=== PATIENT | female | born 1970 | race Caucasian/White ===

== ENCOUNTER → 2016-11-09 | Outpatient (CLI) | payer BC ==
[~2016-11-09] MED LIST: ASPCH81X PO; CHOL100010 PO; IRON PO; LEVO112T2 PO; LEVO112T4 PO; NITR100C6 PO; TRAM-10 PO; ZOLP10TA6 PO; ZOLP5TAB PO
--- NOTE | 2016-11-10 08:17 | DIAGNOSTIC IMAGING REPORT ---
MRI OF THE RIGHT KNEE WITHOUT CONTRAST CLINICAL HISTORY: Right knee pain and swelling. COMPARISON STUDY: None. TECHNIQUE: Utilizing a 1.5 Lashay magnet and dedicated coil, multiplanar, multiecho imaging of the right knee was performed without intravenous or intraarticular contrast. FINDINGS: Alignment of the right knee is anatomic. Extensor mechanism is intact. The anterior and posterior cruciate ligaments are intact. The medial collateral ligament and lateral collateral ligament complex are also intact. There is mild subchondral edema within the anterior aspect of the medial tibial plateau. There is a markedly abnormal appearance of the lateral meniscus. The posterior horn and body of the lateral meniscus are diminutive. There is also a tear within the anterior horn of the lateral meniscus. There is a suspected meniscal fragment adjacent to the anterior horn of the lateral meniscus. A portion of the lateral meniscus may also be within the inferior meniscal gutter. There is signal within the medial meniscus without definite extension to articular surface. There are several small ganglion cysts along the posterior aspect of the posterior cruciate ligament. There is moderate chondrosis of the medial femoral condyle. There is mild chondrosis within the lateral and patellofemoral compartments. IMPRESSION: 1. Complex tear of the lateral meniscus, possibly reflecting a bucket-handle tear. Body and posterior horn are diminutive with suspected meniscal fragment adjacent to the anterior horn of the lateral meniscus. In addition, a portion of the lateral meniscus may be within the inferior meniscal gutter. 2. Moderate chondrosis within the medial femoral condyle with mild chondrosis within the lateral and patellofemoral compartments. Electronically signed by: Baldo Nayak M.D. 11/10/2016 8:16 AM Dictated Date/Time: 11/09/2016 3:58 PM
== END | disposition home or self-care (01) ==
LOC: C.MRIBC 11:14
PROVIDERS: ATTEND Orthopaedic Surgery
DX: S83.271A Complex tear of lateral meniscus, current injury, right knee, initial encounter (principal); M22.2X1 Patellofemoral disorders, right knee; X58.XXXA Exposure to other specified factors, initial encounter

== ENCOUNTER → 2016-12-21 | Day surgery (SDC) | payer BC ==
[2016-12-10 08:26] VITALS: Ht 165.1 cm; Wt 95.5 kg
[~2016-12-21] VITALS: Ht 165.1 cm; Wt 95.5 kg
[~2016-12-21] MED LIST changes: +ATROPINE SULFATE 0.1 MG/ML 5ML SYR IV PRN; +BUPIVACAINE 0.5 % 5 MG/1 ML MPF 30ML VIAL ONE; +CEFAZOLIN 2000 MG/60 ML D5W IV SCH; +DEXAMETHASONE SOD INJ 4 MG/ML VIAL ONE; +EpHEDrine SULFATE INJ 50 MG/ML AMP IV PRN; +EpINEphrine INJ 1MG/ML AMP 1 MG/ML AMP ONE; +FENTANYL CITRATE INJ 50 MCG/1 ML 2 ML VIAL ONE; +HYDROmorphone INJ 1 MG/ML SYR IV PRN; +KETOROLAC TROMETHAMINE 30 MG/ML VIAL ONE; +LACTATED RINGER'S 1000ML 1,000 ML IV SCH; -LEVO112T2 PO; +LIDOCAINE HCL 2% 2 ML VIAL (20MG/ML) ONE; +MIDAZOLAM HCL 1 MG/ML 2ML VIAL ONE; -NITR100C6 PO; +ONDANSETRON INJ 2 MG/ML 2 ML VIAL IV PRN; +ONDANSETRON INJ 2 MG/ML 2 ML VIAL ONE; +OXYCODONE/ACETAMINOPHEN 5-325 TAB PO PRN; +PROMETHAZINE HCL INJ 12.5 MG in SODIUM CHLORIDE 0.9% 50ML 50 ML IV PRN; +PROPOFOL IV EMULSION 10 MG/ML 20 ML VIAL IV ONE; +ROPIVACAINE 0.5% 5 MG/ML 30 ML VIAL ONE; +SODIUM CHLORIDE 0.9% 1000ML 1,000 ML IV SCH; -ZOLP10TA6 PO
--- NOTE | 2016-12-21 07:21 | History & Physical Bridge - SC ---
H&P Re-Evaluation Bridge Note: I have examined the patient, reviewed the History & Physical and in the interval since the performance of the History & Physical I have noted the following changes of clinical significance: No changes noted
--- NOTE | 2016-12-21 07:59 | [facility] Post Operative Brief Note ---
Immediate Operative Summary Operative Date Dec 21, 2016. Pre-Operative Diagnosis Right knee lateral meniscus tear Post-Operative Diagnosis Same as preop Procedure(s) Performed Right Knee Arthroscopy, Partial Lateral Meniscectomy, Removal of plica band Surgeon Dr. Parra J2Ee Developer Surgeon(s) Mirza Ye PA-C Estimated Blood Loss 0 mL Findings ABOVE Specimens None Anesthesia LMA Complication(s) None Disposition Recovery Room / PACU
--- NOTE | 2016-12-21 08:10 | Discharge Instructions-SurgCtr ---
Discharge Instructions Date of Service Dec 21, 2016. Visit Reason for Visit: Right Knee Pain, Synovitis Discharge Discharge Diagnosis / Problem: SAME ABOVE Discharge Goals Goal(s): Decrease discomfort, Improve function Activity Recommendations Activity Limitations: as noted below Lifting Limitations: gradually increase as tolerated Exercise/Sports Limitations: until after follow-up appointment Shower/Bathe: may shower/bathe in 3 days Anesthesia . Post Anesthesia Instructions: If you have had General Anesthesia or IV Sedation: * Do not drive today. * Resume driving when surgeon permits. * Do not make important decisions or sign legal documents today. * Call surgeon for: 1. Temperature elevations greater than 101 degrees F. 2. Uncontrollable pain. 3. Excessive bleeding. 4. Persistent nausea and vomiting. 5. Medication intolerance (nausea, vomiting or rash). * For nausea and vomiting use only clear liquids such as: tea, soda, bouillon until nausea subsides, then gradually increase diet as tolerated. * If you have any concerns or questions, call your surgeon's office. If physician is unavailable and it is an emergency, call 911 or go to the nearest emergency room. . Instructions / Follow-Up Instructions / Follow-Up MEDICATIONS: * Resume previous medications unless instructed otherwise by your surgeon. * Always take pain medication on a full stomach or with food to avoid upset stomach. * Do not drink alcohol or drive while taking narcotics. * Ibuprofen or Tylenol may be taken if narcotic not needed. SPECIAL CARE INSTRUCTIONS: __ None _X_ Keep extremity elevated and iced x 48 hours; apply ice 20-30 minutes 8-10 times/day. May remove at night. __ Crutches __ May discard when able __ Brace/Post-op shoe __ 24 hrs/day __ Remove at night _X_ Dressing __ Maintain until seen in office, may shower with plastic over site X__ Remove dressings in 24-48 hours and then may shower _X_ Cover incisions with band-aids after showering __ Do not remove steri-strips Call physician if chills or temperature rises above 102 degrees or pain unrelieved by prescribed pain medications. Office [phone] Diet Recommendations Home Diet: resume previous diet Procedures Procedures Performed: Right Knee Arthroscopy, Partial Lateral Meniscectomy, Removal of plica band Pending Studies Studies pending at discharge: no Medical Emergencies . Who to Call and When: Medical Emergencies: If at any time you feel your situation is an emergency, please call 911 immediately. . Non-Emergent Contact Non-Emergency issues call your: Primary Care Provider . . "Provider Documentation" section prepared by Mirza Ye. .
[2016-12-21] MEDS: FENTANYL CITRATE INJ 50 MCG/1 ML 2 ML VIAL IV PRN ×2 (08:29→08:39)
[2016-12-21 09:07] VITALS: TEMP 36.4
--- NOTE | 2016-12-21 09:13 | Anesthesia Progress Nt - [facility] ---
Anesthesia Post Op Note Date & Time Dec 21, 2016 at 09:13 Vital Signs Pain Intensity: 3 Vital Signs Past 12 Hours Date Time Temp Pulse Resp B/P (MAP) Pulse Ox O2 Delivery O2 Flow Rate FiO2 12/21/16 08:57 85 12 99 12/21/16 08:57 87 12 12/21/16 08:57 36.2 70 12 117/83 99 Room Air 12/21/16 08:56 117/83 12/21/16 08:52 78 13 12/21/16 08:52 78 13 99 12/21/16 08:51 133/78 12/21/16 08:47 69 11 12/21/16 08:47 69 11 100 12/21/16 08:46 120/82 12/21/16 08:42 86 11 100 12/21/16 08:42 88 11 12/21/16 08:41 131/80 12/21/16 08:37 86 12 12/21/16 08:37 84 12 100 12/21/16 08:36 126/81 12/21/16 08:32 95 20 12/21/16 08:32 94 20 100 12/21/16 08:31 128/81 12/21/16 08:27 94 16 100 12/21/16 08:27 95 16 12/21/16 08:26 125/84 12/21/16 08:22 91 16 99 12/21/16 08:22 91 16 12/21/16 08:21 121/77 12/21/16 08:17 103 24 12/21/16 08:17 103 24 100 12/21/16 08:16 119/79 12/21/16 08:12 90 16 12/21/16 08:12 91 16 100 12/21/16 08:11 120/78 12/21/16 08:08 125/95 12/21/16 08:07 97 98 12/21/16 08:07 97 12/21/16 08:07 36.3 95 16 125/95 98 Mask 6 12/21/16 06:40 37.0 83 22 135/110 (118) 95 Room Air Notes Mental Status: alert / awake / arousable, participated in evaluation Pt Amnestic to Procedure: Yes Nausea / Vomiting: adequately controlled Pain: adequately controlled Airway Patency, RR, SpO2: stable & adequate BP & HR: stable & adequate Hydration State: stable & adequate Anesthetic Complications: no major complications apparent
--- NOTE | 2016-12-21 09:28 | OPERATIVE REPORT ---
DATE OF OPERATION: 12/21/2016 PREOPERATIVE DIAGNOSIS: Chronic Lateral meniscus tear, right knee. POSTOPERATIVE DIAGNOSIS: Bucket handle tear, lateral meniscus, right knee and plica bands, patellofemoral joint. PROCEDURES: 1. Right knee arthroscopy and partial lateral meniscectomy. 2. Removal of plica band of patellofemoral joint. SURGEON: Dr. Donte Parra. ARBOR PRESS OPERATOR: Mirza Ye PA-C. ANESTHESIOLOGIST: Eddie Thomas MD ANESTHESIA: LMA. DRAINS: None. COMPLICATIONS: None. CONDITION: The patient tolerated the procedure well and returned to the recovery room in apparent satisfactory condition. INDICATIONS FOR SURGERY: Josiane is a 46-year-old female who has had history of right knee pain and discomfort. She has had no recent injury, but she has had problems in the knee especially in the lateral compartment. Positive Carlos test. MRI showed like a Bucket handle type tear. We went over treatment options and she has elected to proceed with surgery. Procedure, expected outcomes and side effects were all explained in detail. DESCRIPTION OF PROCEDURE: The patient was taken to the OR, at which time she was placed supine on the operating table and put to sleep by the anesthesia department. Examination of the right knee was performed. She had a very large size leg. Ligamentous miller, it was stable. We went ahead and prepped and draped in the usual sterile fashion. We began arthroscopic examination in the anteromedial and anterolateral portals. The medial side of the knee looked good. The compartments looked fine as far as the meniscus and the articular surfaces. You can see she had a tear of the lateral meniscus and it was flipped up on itself. It was sort of unusual tear. It looked that it had been there for a longtime, we could not reduced it back. I came in with 15 upbiting scissors and trimmed it back. We used a full radius resector and trimmed the meniscus back to the rim that we thought was stable. The articular surfaces looked pretty good as far as the tibial plateau over the femoral condyle. The rest of knee was inspected. She was found to have plica bands of patellofemoral joints. She has also had some chondrosis of the trochlear groove. A light debridement was done here also with plica band that was removed. Knee then was copiously irrigated. Cannulas were removed. Portals were closed with 4-0 nylon sutures. 30 mL of ropivacaine, 10 mg of Toradol, and 1 mL of epinephrine was placed in the knee joint. We placed a sterile dressing of Xeroform, 4 x 4, ABD, Sof-Rol, and Del bandage. She returned back to recovery room in apparent satisfactory condition. SURGICAL FINDINGS: 1. Buckle handle tear of the lateral meniscus. 2. Plica band of the patellofemoral joint. 3. Little chondrosis of the trochlear groove of the femur. I attest to the content of the Intraoperative Record and any orders documented therein. Any exceptions are noted below. MTDD
[2016-12-21 09:33] VITALS: BP 121/86; PULSE 69; O2SAT 97
== END | disposition home or self-care (01) ==
LOC: X.SURG 06:28
PROVIDERS: ATTEND Orthopaedic Surgery
DX: S83.251A Bucket-handle tear of lateral meniscus, current injury, right knee, initial encounter (principal); E78.00 Pure hypercholesterolemia, unspecified; Z85.3 Personal history of malignant neoplasm of breast; E03.9 Hypothyroidism, unspecified; Z87.442 Personal history of urinary calculi; E66.9 Obesity, unspecified; X58.XXXA Exposure to other specified factors, initial encounter

== ENCOUNTER → 2017-01-26 | Outpatient (CLI) | payer BC ==
[~2017-01-26] MED LIST changes: -ATROPINE SULFATE 0.1 MG/ML 5ML SYR IV PRN; -BUPIVACAINE 0.5 % 5 MG/1 ML MPF 30ML VIAL ONE; -CEFAZOLIN 2000 MG/60 ML D5W IV SCH; -DEXAMETHASONE SOD INJ 4 MG/ML VIAL ONE; -EpHEDrine SULFATE INJ 50 MG/ML AMP IV PRN; -EpINEphrine INJ 1MG/ML AMP 1 MG/ML AMP ONE; -FENTANYL CITRATE INJ 50 MCG/1 ML 2 ML VIAL ONE; -HYDROmorphone INJ 1 MG/ML SYR IV PRN; -KETOROLAC TROMETHAMINE 30 MG/ML VIAL ONE; -LACTATED RINGER'S 1000ML 1,000 ML IV SCH; -LIDOCAINE HCL 2% 2 ML VIAL (20MG/ML) ONE; -MIDAZOLAM HCL 1 MG/ML 2ML VIAL ONE; -ONDANSETRON INJ 2 MG/ML 2 ML VIAL IV PRN; -ONDANSETRON INJ 2 MG/ML 2 ML VIAL ONE; -OXYCODONE/ACETAMINOPHEN 5-325 TAB PO PRN; -PROMETHAZINE HCL INJ 12.5 MG in SODIUM CHLORIDE 0.9% 50ML 50 ML IV PRN; -PROPOFOL IV EMULSION 10 MG/ML 20 ML VIAL IV ONE; -ROPIVACAINE 0.5% 5 MG/ML 30 ML VIAL ONE; -SODIUM CHLORIDE 0.9% 1000ML 1,000 ML IV SCH
--- NOTE | 2017-01-26 15:25 | DIAGNOSTIC IMAGING REPORT ---
MRI LEFT KNEE NO CONTRAST CLINICAL HISTORY: Left knee pain COMPARISON STUDY: Conventional radiographic study dated 11/03/2016 FINDINGS: Imaging was performed the sagittal, coronal, and axial planes. There are no areas of marrow replacement to indicate occult fracture or bone bruise. The patellar and quadriceps tendons appear intact. The anterior and posterior cruciate ligaments appear intact. The medial and lateral collateral ligaments appear intact. The patellar retinacular structures appear intact. There are globular degenerative signal changes within the posterior horn of the medial meniscus. No meniscal tears are visualized. There is mild chondrosis involving the medial joint compartment. IMPRESSION: 1. Mild chondrosis involving the medial joint compartment 2. Globular degenerative signal changes within the medial meniscus. No meniscal tears identified 3. No evidence of cruciate or collateral ligament disruption Electronically signed by: Miguel Geiger M.D. 01/26/2017 3:23 PM Dictated Date/Time: 01/26/2017 3:17 PM
== END | disposition home or self-care (01) ==
LOC: C.MRIBC 14:25
PROVIDERS: ATTEND Orthopaedic Surgery
DX: M25.562 Pain in left knee (principal)

== ENCOUNTER 2024-05-24 05:15 | Observation (INO) ==
--- NOTE | 2024-04-30 14:41 | PAT Medication Instructions ---
Medication Instructions Date of Service April 30, 2024 Home Medications Medication Instructions Recorded walker #1 ea 02/24/24 walker #1 ea 02/24/24 levothyroxine 175 mcg capsule 175 mcg PO QAM multivitamin,Ca,mineral-folic acid-herbal no.157 400 mcg tablet 1 tab PO QDL DO NOT take the morning of surgery multivitamin,Ca,mineral-folic acid-herbal no.157 400 mcg tablet 1 tab PO QDL Take morning of surgery With a small sip of water, OTHERWISE NOTHING TO EAT OR DRINK AFTER MIDNIGHT: levothyroxine 175 mcg capsule 175 mcg PO QAM Other Notes If you have any questions please call us at [phone] or [phone] or [phone] or [phone]
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
--- OUTSIDE RECORDS SUMMARY | 2024-05-24 05:19 | External Medical Summary | Continuity of Care Document ---
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 Name Role Phone Letha Roach Primary Care Physician [phone] Encounter [facility] FINNBR [id number] Date(s): 05/09/24 - 05/09/24 [facility] [address], [address], [address] FELIPE Cristina [id number] [phone] Encounter Diagnosis Branch retinal vein occlusion of right eye(Discharge Diagnosis) - 05/09/24 Age-related nuclear cataract of both eyes(Discharge Diagnosis) - 05/09/24 Meibomian gland dysfunction (MGD) of both eyes(Discharge Diagnosis) - 05/09/24 Ocular hypertension, bilateral(Discharge Diagnosis) - 05/09/24 Discharge Disposition: Home or Self Care Attending Physician: MD Nate, Shirley Jiang Referring Physician: MD Mason Marissa Lindsey Allergies, Adverse Reactions, Alerts Substance Criticality Severity Reaction Reaction Severity Status penicillin Hives Active sulfa drugs Unknown reaction A ctive Adhesive bandage Rash Act nancie Medications levothyroxine 88 mcg (0.088 mg) oral tablet Start: 05/09/24 10:18:00 AM EST, 1 tab, PO, Daily Start Date: 05/09/24 Status: Ordered Mental Status 05/09/24 Barriers to Learning one year None evide nt Communication Barrier Present No Health Literacy Communication Barriers N ever Primary Language Occitan Problem List Condition Confirmation Course Effective Dates Status Health St atus Informant Ocular hypertension, bilateral Confirmed Active Foot fracture 1 Confirmed Active Generalized itching Confirmed Active HTN (hypertension) Confirmed Active Hypothyroid Confirmed Active Insomnia Confirmed Active Meibomian gland dysfunction (MGD) of both eyes Confirmed Active Age-related nuclear cataract of both eyes Confirmed Active Branch retinal vein occlusion of right eye Confirmed Active 1right Diagnosis Diagnosis Type Effective Dates Health Status Clinical Service Informant Ocular hypertension, bilateral Discharge Diagnosis 05/09/24 Branch retinal vein occlusion of right eye Discharge Diagnosis 05/09/24 Age-related nuclear cataract of both eyes Discharge Diagnosis 05/09/24 Meibomian gland dysfunction (MGD) of both eyes Discharge Diagnosis 05/09/24 Procedures Procedure Date Related Diagnosis Body Site Status Foot surgery, right 01/27/11 Compl eted foot surgery, right 08/2010 Compl eted ORIF - Open reduction and in ternal fixation of fracture 1 05/05/10 Completed Knee surgery, left 1984 Comple ronnie Cyst removal 1982 Completed 1right ankle Social History Social History Type Response Smoking Status Never smoked cigaret daniel Sex Female Sex Representation Female (finding) Ophthalmology Outpatient Note * MD Sullivan Ingrid U: PERFORM, SIGN, VERIFY Event Display: Ophthalmology Outpt Note Authored Date: Patient: TRUMAN MOONEY Age: 53 years Sex: Female : 1970 Associated Diagnoses: None Author: MD Sullivan Ingrid U Visit Information Visit Type: New Chief Complaint: New patient, BRVO OD, hypertensive retinopathy OU, cataract OU- patient reports vision seems distorted OD, having trouble with fine vision OD, stinging sensation OD, has been getting Avastin injections by Dr. Mason at [facility] History of Present Illness Presents for: pt here for second opinion; pt of Dr. Mason at [facility] whose note of 03/28/24 I reviewed and which documents BRVO with ME RE treated with avastin 02/13/24 and 03/28/24 (pt reports she received a third avastin injection to the RE 05/03/24), HTN retinopathy BE, cataract BE, OHTN BE. Pt reports FH of AMD, no FH of glau; reports Dr. Mason and her primary eye care provider (Dr. Fortune) are both aware of her ocular findings, including OHTN and she has had VF done by Dr. Fortune andhas an appt to see him again in May 2024. Pt is also already scheduled to see Dr. Mason again in May 2024, Pt reports vision RE has been distorted ever since having BRVO RE. Per records, VA RE was 20/100 on 02/13/24; 20/70 on 03/28/24. Pt reports her PCP is aware of her BRVO and treatments, and a workup including BP, carotid doppler was done--carotid dopplers were normal, her PCP started pt on an anti-hypertensive medication but pt is holding off on starting that until her right knee replacementis done (scheduled for 05/24/24).. Review of Systems Tech Entered Information: History (ROS) Reviewed: 05/09/24 Systems Reviewed: Eyes ROS Comments: Please refer to new patient form dated 05/09/24 . All systems were reviewed and were negative unless mentioned in the HPI. Health Status Allergies: Allergic Reactions (Selected) Severity Not Documented Adhesive bandage- Rash. Penicillin- Hives. Sulfa drugs- Unknown reaction.. Current Medications: (Selected) Documented Medications Documented levothyroxine 88 mcg (0.088 mg) oral tablet: 1 tab, PO, Daily. Histories Family history: Cancer Unknown Heart disease Unknown . Social History: Social & Psychosocial Habits Tobacco 05/09/2024 Risk Assessment: Denies Tobacco Use . Patient alert and oriented x 3, no acute distress. Problem list, past medical history, medications,allergies, family history, social history, and review of systems [facility] Visual Acuity Visual Acuity Right cc: 20/40-2 Left cc: 20/25-1 Both cc: Right PH: 20/40 Left PH: Both PH: Visual Acuity Method: Snellen Visual Acuity Test Type: Line Refraction No current glasses information entered on this encounter No Contact Hx information found Pupil Measurements Pupils Equal: Yes Right RAPD In Dark: Negative APD Left RAPD In Dark: Negative APD Motility Ocular Motility: Versions Full Visual Spencer Visual Spencer: Normal by confrontation testing Right & Left Eye Additional Testing Gonioscopy: No NVA BE. External Lids: Right eye: Meibomian gland disease. Left eye: Meibomian gland disease. lacrimals, orbits and pre-auricular lymph nodes within normal limits Slit Lamp Exam Sclera: Both eyes within normal limits. Conjunctiva: Both eyes within normal limits. Cornea: Both eyes: Within normal limits. Tear film: Both eyes within normal limits. Anterior chamber: Both eyes within normal limits. Iris: Both eyes within normal limits, no NVI BE. Lens: Right eye: Cataract ( Nuclear sclerosis ). Left eye: Cataract ( Nuclear sclerosis ). Intraocular Pressure Intraocular Pressure Method: Tonopen Tonometry Time of Day: 10:28 Right Intraocular Pressure: 21 mmHg Left Intraocular Pressure: 24 mmHg Dilation Eye(s) Dilated: Both eyes Time Dilated: 10:28 Medication for Dilation: tropicamide 1% / phenylephrine 2.5% Posterior Segment View: Both eyes: Within normal limits. Vitreous: Both eyes: Within normal limits. Optic Disc: Both eyes: No disc hemorrhage. Vessels: Right eye: BRVO with mild ME not directly in center of macula. Left eye: Within normal limits. Macula: Right eye: BRVO with mild ME not directly in center of macula. Left eye: Within normal limits. Periphery: Both eyes: Within normal limits. Ancillary Testing Optical Coherence Tomography: Right eye: BRVO with mild ME not directly in center of macula. Left eye: Within normal limits. Impression and Plan Diagnosis: Branch retinal vein occlusion of right eye ([id number] H34.8312, Discharge, Medical), Age-related nuclear cataract of both eyes ([id number] H25.13, Discharge, Medical), Meibomian gland dysfunction (MGD) of both eyes ([id number] H02.883, Discharge, Medical), Ocular hypertension, bilateral ([id number] H40.053, Discharge, Medical). Plan: pt followed by her established treating retina provider Dr. Mason (pt lives in [place] and prefers to receive her retina care there), pt here for second opinion; pt of Dr. Mason at [facility] whose note of 03/28/24 I reviewed and which documents BRVO with ME RE treated with avastin 02/13/24 and 03/28/24 (pt reports she received a third avastin injection to the RE 05/03/24), HTN retinopathy BE, cataract BE, OHTN BE. Pt reports FH of AMD, no FH of glau; reports Dr. Mason and her primary eye care provider (Dr. Fortune) are both aware of her ocular findings, including OHTN and she has had VF done by Dr. Fortune and has an appt to see him again in May 2024. Pt is also already scheduled to see Dr. Mason again in May 2024, RSVP. Patient Instructions: Counseling: Glucose, blood pressure, cholesterol control, MGD counseling, Cataract counseling, AMD (including AREDS) counseling. Follow Up: pt here for second opinion; pt of Dr. Mason at [facility] whose note of 03/28/24 I reviewed and which documents BRVO with ME RE treated with avastin 02/13/24 and 03/28/24 (pt reports she received a third avastin injection to the RE 05/03/24), HTN retinopathy BE, cataract BE, OHTN BE. Pt reports FH of AMD, no FH of glau; reports Dr. Mason and her primary eye care provider (Dr. Fortune) are both aware of her ocular findings, including OHTN and she has had VF done by Dr. Fortune and has an appt to see him again in May 2024. Pt is also already scheduled to see Dr. Mason again in May 2024; RTC [facility] PRN. Plan for next visit: Dilated exam, OCT macula. Orders: PowerOrders Patient Care Ambulatory: Follow Up Appointment Ambulatory (Order): Other-Specify in Special Instructions, Appointment Type Patient Preference, pt has f/u scheduled with Drs. Mason and Devika; RTC here PRN Evaluation and Management: [id number] Outpatient Visit [facility] 4 (Order): 05/09/2024 11:32 EST, OPHTHALMOLOGY, Branch retinal vein occlusion of right eye | Age-related nuclear cataract of both eyes | Meibomian gland dysfunction (MGD) of both eyes | Ocular hypertension, bilateral, 45-59 Mins. Electronic Signature on File Electronically Reviewed/Signed by: Shirley Sullivan MD, MPH Author Signature Dt/Tm:05/09/2024 11:34 AM Professor of Ophthalmology & Public Health Sciences [address], [address] [address] Email: [email or web address] Patient Care team information Care Team Personnel Name: MD Marley, Letha Position: Referring DIRECT Member Role: Primary Care Provider Address: [address] [place] [id number] [place] Care Team Related Persons Name: YESSICA MOONEY"
--- OUTSIDE RECORDS SUMMARY | 2024-05-24 05:19 | External Medical Summary | Summary of Care ---
Author Name Unknown Organization [facility] Address [address] [place] [facility] [place] [address] Phone [phone] Care Team Providers Care Home Supervisor Name Role Phone Letha Roach MD Primary Care Provider [phone] Encounter Details Date Type Department Care Team (Late st Contact Info) Description 05/15/2024 Orders Only [facility], [place] [address] [phone] Letha Roach MD [address] [address] Allergies Active Allergy Reactions Criticality Noted Date Comments Sulfamethoxazole-Trimetho prim Muscle pain High 02/03/2016 Rhabdomyolysis Penicillins Hives 10/01/2019 Statins Muscle pain 12/20/2023 pravastatin, atorvastatin & simvastatin Adhesive Tape Itching 06/18/2015 Steri strips after breast BX made her itch documented as of this encounter (statuses as of 05/15/2024) Medications Ibuprofen 800 MG Oral Tablet (Motrin) Take 1 Tab by mouth 3 times a day. For first 3 days of your period. Take with food 30 Tablet 3 Active Cetirizine HCl 10 MG Oral Tablet (ZyrTEC) Take 1 Tablet by mouth in the morning. 90 Tablet 3 3 Active metroNIDAZOLE 0.75 % External Lotion Apply 1 Applicator topically to affected area in the morning and 1 Applicator before bedtime. 59 mL 3 3 Active Fluticasone Propionate 50 MCG/ACT Nasal Suspension (Flonase) Administer 2 Sprays into each nostril in the morning. 16 g 1 4 Active Levothyroxine Sodium 88 MCG Oral Tablet (Levoxyl) Take 1 Tablet by mouth daily first thing in the morning. along with 100mcg tabs for TDD of 188mcg. 90 Tablet 4 Active Levothyroxine Sodium 100 MCG Oral Tablet (Levoxyl) Take 1 Tablet by mouth daily first thing in the morning. with 88mcg tabs for TDD of 188mcg. 90 Tablet 4 Active metFORMIN HCl 500 MG Oral Tablet (Glucophage) Take 1 Tablet by mouth daily with breakfast. For 1 month. Then increase to two times a day with meals 180 Tablet 4 Active Ezetimibe 10 MG Oral Tablet (Zetia) Take 1 Tablet by mouth in the morning. 90 Tablet 4 Active Losartan Potassium 25 MG Oral Tablet (Cozaar) Take 1 Tablet by mouth in the morning. 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 03/22/2024 Chronic pain of right knee 03/22/2024 Prediabetes 12/20/2023 History of bilateral breast cancer 12/19/2023 Hyperlipidemia 08/23/2022 Endometrial hyperplasia 08/23/2022 Obesity, morbid (more than 1 00 lbs over ideal weight or BMI > 40) 02/22/2022 History of lobular carcinoma in situ (LCIS) of b reast 01/27/2018 Persistent insomnia 01/27/2018 Hypothyroidism due to acquired atrophy of thyroi d 02/04/2000 HTN, goal below 130/80 documented as of this encounter (statuses as of 05/15/2024) Resolved Problems Problem Noted Date Diagnosed Date Resolved Date Polyneuropathy in other dise ases classified elsewhere 01/14/2022 02/22/2022 Bilateral malignant neoplasm of breast in female 01/14/2022 12/19/2023 Body mass index (BMI) of 40. 0 to 44.9 in adult 03/10/2020 08/23/2022 Overview: Per Obesity protocol Post-operative nausea and vomiting 10/01/2019 02/22/2022 Overview (10/01/2019): H/o hospitalization for PONV HTN, goal below 140/90 02/08/201701/27 Nephrolithiasis 02/24/2016 01/27/2018 Breast neoplasm, Tis (LCIS) 10/30/2015 01/27/2018 Pruritic disorder 03/17/2012 01/27/2018 ADVANCE DIRECTIVE INFORMATION 04/28/2005 01/27/2018 Overview (04/28/2005): No, Advance Directive brochure offered , patient declined. Adjustment disorder with depressed mood 02/04/2000 01/27/2018 Insomnia 01/27/2018 Overview (02/28/2017): ICD-10 update of inactive term documented as of this encounter (statuses as of 05/15/2024) Immunizations Name Administration Dates Next Due Seasonal Influenza Vac., MDV , IM, 0.5 mL (Fluzone) 01/28/2015,03/21/2014,03/30/2013,2011,06/17/2011 Seasonal Influenza, PF, 6 M & above, IM , (FluLaval or Fluzone) 02/12/2023,02/13/2022,03/01/2019 Seasonal Influenza, Quadriva lent, No Preserve, IM 02/12/2020,03/28/2017 Seasonal Influenza, Trivalen t, (IIV3), PF, (Fluzone) 03/24/2024 TD, Preservative Free 07/15/2021 TDAP, Age 7 and older, IM (Adacel) 06/23/2009, documented as of this encounter Social History Tobacco Use Types Packs/Day Years Used Date Smoking Tobacco: Former Cigarettes 0.5 10 0 08/28/1988 - 08/28/1998 Passive Smoke Exposure: Never Smokeless Tobacco: Never Comments:no passive smoke Alcohol Use Standard Drinks/Week Comments No 0 (1 standard drink = 0.6 oz pur e alcohol) PHQ-2 Answer Date Recorded PHQ Adult Total Score 0 12/19/2023 Hunger Vital Sign Answer Date Recorded Within the past 12 months, y ou worried that your food would run out before you got the money to buy more. Never true 12/19/19 24 Within the past 12 months, t he food you bought just didn't last and you didn't have money to get more. Never true 12/19/2023 Childcare Answer Date Recorded Do you feel overwhelmed with taking care of a child, family member or friend? No 12/19/2023 Does your family need help f inding childcare? (Household - for ages 0-17 years) Not on file 12/19/2023 Clothing Answer Date Recorded Have you been unable to get clothing when it was really needed? No 12/19/2023 Is your family able to get c lothes or diapers when needed? (Household - for ages 0-17 years) Not on file 12/19/2023 Personal Safety Answer Date Recorded Do you feel unsafe or have concerns for your saf ety? No 12/19/2023 Do you have concerns for you r family's safety? (Household - for ages 0-17 years) Not on file 12/19/2023 Utilities Answer Date Recorded Do you have trouble paying y our heating, water, or electric bill? No 12/19/2023 Is your family able to pay t he heat, water, or electric bill? (Household - for ages 0-17 years) Not on file 12/19/2023 Does your family have access to good internet? (Household - for ages 0-17 years) Not on file 12/19/2023 Employment Status Answer Date Recorded Are you unemployed or without regular income? No 12/19/2023 Does the household have a re gular source of income? (Household - for ages 0-17 years) Not on file 12/19/2023 Social Connections Answer Date Recorded How often do you feel lonely or isolated from th ose around you? Never 12/19/2023 Financial Resource Strain Answer Date R ecorded Do you have any trouble payi ng for your medications, or do you think you might in the future? No 12/19/2023 Does your family have troubl e paying for medicine? (Household - for ages 0-17 years) Not on file 12/19/2023 Transportation Needs Answer Date Record ed Do you have trouble getting a ride to medical visits or work? (Adult - for ages 18 years and over) Not on file 12/19/2023 Does your family have a hard time getting a ride to doctors visits? (Household - for ages 0-17 years) Not on file 12/19/2023 Has lack of transportation k ept you from medical appointments, meetings, work, or from getting things needed for daily living? Check all that apply. No 12/19/2023 Do you (or your family) have trouble finding or paying for a ride (transportation)? (Household - for ages 0-17 years) Not on file 12/19/2023 Housing Stability Answer Date Recorded Do you currently live in a s helter or have no steady place to sleep at night? No 12/19/2023 Do you think you are at risk of becoming homeless? (Adult - for ages 18 years and over) Not on file 12/19/2023 Does your family worry about paying for your home or becoming homeless? (Household - for ages 0-17 years) Not on file 0 12/19/2023 Are you homeless or worried that you might be in the future? No 12/19/2023 Are you (or your family) eren eless or worried that you might be in the future? (Household - for ages 0-17 years) Not on file Food Insecurity Answer Date Recorded Do you need food for this week? No 12/19/2023 Are you able to get enough f ood for your family? (Household - for ages 0-17 years) Not on file 12/19/2023 Does your family need food t his week? (Household - for ages 0-17 years) Not on file 12/19/2023 Do you always have enough fo od for your family? (Household - for ages 0-17 years) Not on file 12/19/2023 Comments No Sex and Gender Information Value Date Recorded Sex Assigned at Female 08/23/2022 7:52 AM EDT Legal Sex Female 5:39 AM EST Gender Identity Female 08/23/2022 7:52 AM EDT Sexual Orientation Straight 08/23/2022 7: 52 AM EDT documented as of this encounter Functional Status * Are you deaf or do you have serious difficulty hearing? Answer Date of Assessment Author No 07/18/2018 9:01 PM Josefa Vasques LPN * Are you blind or do you have serious difficulty seeing, even when wearing glasses? Answer Date of Assessment Author No 07/18/2018 9:01 PM Josefa Vasques LPN * Do you have serious difficulty walking or climbing stairs? (5 years old or older) Answer Date of Assessment Author No 07/18/2018 9:01 PM Josefa Vasques LPN * Do you have difficulty dressing or bathing? (5 years old or older) Answer Date of Assessment Author No 07/18/2018 9:01 PM Josefa Vasques LPN * Because of a physical, mental, or emotional condition, do you have difficulty doing errands alone such as visiting a doctors office or shopping? (15 years old or older) Answer Date of Assessment Author No 07/18/2018 9:01 PM Josefa Vasques LPN documented as of this encounter Mental Status * Because of a physical, mental, or emotional condition, do you have serious difficulty concentrating, remembering, or making decisions? (5 years old or older) Answer Entry Date Author No 07/18/2018 9:01 PM Josefa Vasques LPN documented in this encounter Plan of Treatment Upcoming Encounters Date Type Department Care Team (Late st Contact Info) Description 06/29/2024 8:00 AM EST Telemedicine Sleep Disorders [facility] [address] [phone] Shalonda White, [address] [address] 07/23/2024 8:40 AM EST Office Visit [facility], [place] [address] [phone] Letha Roach MD [address] [address] Scheduled Procedures Name Priority Associated Diagnoses Date/Ti me COLONOSCOPY FLEXIBLE PROXIMAL DIAGNOSTIC Recall History of colon polyps Health Maintenance Due Date Last Done Comments Hepatitis B Vaccine (1 of 3 - 19+ 3-dose series) 11/06/1987 Cologuard 2013 Fecal Occult Blood Test 2013 Sigmoidoscopy 2013 COVID-19 Vaccine ( season) 2024 Depression Screening 12/18/2024 12/19/2023 GFR 12/18/2024 12/19/2023, 04/0 07/2022, 02/22/2022, Additional history exists HbA1c 12/18/2024 12/19/2023, 01/29, 06/17/2011, Additional history exists TSH 12/18/2024 12/19/2023, 10/29, 07/09/2022, Additional history exists Pap Smear 06/24/2025 06/24/2022, 05/30, 10/11/2016, Additional history exists Albumin/Creatinine Ratio 12/18/2026 12/19/2023, 06/30 Colonoscopy 02/19/2027 02/19/2022, 01/29, 02/08/2019, Additional history exists Colorectal Cancer Screening 02/19/2027 Cervical Cancer Screening 06/24/2027 HPV/Co-Test 06/24/2027 06/24/2022 Lipid Panel 12/18/2028 12/19/2023, 06/30, 02/22/2022, Additional history exists DTap/Tdap Vaccines (4 - Td or Tdap) 07/15/2031 07/15/2021, 06/23/2009, 06/19/2009 RETIRED - COLONOSCOPY-EVERY 5 YRS AGES 18-100 Discontinued 02/19/2022, 02/19/2022, 02/08/2019, Additional history exists Influenza Vaccine (FLU shot) Completed 03/24/2024, 02/12/2023, 02/13/2022, Additional history exists HIV Screening Discontinued HPV (Gardasil) Vaccine Aged Out No lo nger eligible based on patient's age to complete this topic Hepatitis C Screening Discontinued MENINGOCOCCAL (MENACTRA/MENVEO) Aged Out No longer eligible based on patient's age to complete this topic Pneumococcal Vaccine: Pediatrics (0 to 5 Years) and At-Risk Patients (6 to 64 Years) Aged Out No longer eligible based on patient's age to complete this topic Zoster Vaccines Discontinued documented as of this encounter Medical Devices Implanted Type Area Instructional Supervisor Device Identifier Shelf Expiration Date Model / Serial / Lot Graft Allomax 1.0 6x16cm - [id number] - [id number] Implanted:Qty : 1 [place] 03/28/[place] [facility] [place] Breast CR BARD : DAVOL 03/28/2022 [id number] / [id number] / [id number] Graft Allomax 1.0 6x16cm - [id number] - [id number] Implanted:Qty : 1 on 03/28/2018 [place] Herman Osborn [place] [facility] [place]: Breast CR BARD : DAVOL 07/28/2022 [id number] / [id number] / [id number] Breast Implant 354-2514 Saline - [id number] - [id number] Implanted:Qty : 1 on 03/28/2018 by Herman Osborn [place] [facility] [place]: Breast MENTOR RESHMA 08/30/2021 [id number] / [id number] Breast Implant 354-2514 Saline - [id number] - [id number] Implanted:Qty : 1 on 03/28/2018 by Herman Osborn [place] [facility] [place]: Breast MENTOR RESHMA 06/05/2021 [id number] / [id number] Implant Gel Soft Touch 695cc - [id number] - [id number] Implanted:Qty : 1 on 07/18/2018 [place] Osborn [place] [facility] [place]: Breast ALLERGAN 03/28/2023 [facility]695 / [id number] / [id number] Graft Allomax 1.0 6x16cm - [id number] Implanted:08/2019 [place] Herman Osborn [place] [facility] [place] not on [place] Right: Breast CR BARD : DAVOL 11/27/2023 [id number] / [id number] / [id number] Implant Brst Full Gel [id number] - [id number] Implanted:08/2019 [place] Os[place] [facility] [place] not [place] Right: Breast ALLERGAN [id number] 03/28/2023 [facility]-695 / [id number] / [id number] documented as of this encounter Procedures Procedure Name Priority Date/Time Associated Diagnosis Comments DIABETIC EYE EXAM Routine 05/09/2024 documented in this encounter Results * DIABETIC EYE EXAM (05/09/2024) 05/09/2024 us History Per Patient OTHER Final Result OUTSIDE LAB (SEE SCANNED REPORT) documented in this encounter Advance Directives * Full Code (Latest Code Status on File) Date Activated Date Inactivated Comments 10/01/2019 12:29 PM 10/01/2019 6:22 PM Question Answer Comments Discussion of Advance Directives occurred with: Not Discussed * Full Code Date Activated Date Inactivated Comments 07/18/2018 4:29 PM 07/19/2018 1:26 PM Question Answer Comments Discussion of Advance Directives occurred with: Not Discussed * Full Code Date Activated Date Inactivated Comments 03/28/2018 9:03 AM 03/29/2018 5:25 PM Question Answer Comments Discussion of Advance Directives occurred with: Not Discussed Care Teams Home Supervisor Relationship Specialty Start Date End Date Letha Roach MD [address] [facility] [address] PCP - General Internal Medicine 02/22/22 documented as of this encounter
[2024-05-24] MEDS: LR 500ML BOLUS, THEN 15ML/HR IV SCH (06:11)
[2024-05-24] MEDS: ACETAMINOPHEN 500 MG TAB PO SCH ×2 (06:11→14:00)
[2024-05-24] MEDS: METOCLOPRAMIDE HCL 10 MG TABLET PO SCH (06:12)
[2024-05-24] MEDS: LR 60ML/HR IV SCH (06:12)
[2024-05-24] MEDS: CeleBREX 200 MG CAP PO SCH (06:12)
[2024-05-24] MEDS: FAMOTIDINE 20 MG TAB PO SCH (06:12)
[2024-05-24] MEDS ORDERED: DEXAMETHASONE SOD INJ 4 MG/ML VIAL ONE (06:20)
[2024-05-24] MEDS ORDERED: BUPIVACAINE 0.5 % 5 MG/1 ML PF 10ML VIAL ONE (06:20)
[2024-05-24] MEDS ORDERED: EPINEPHrine INJ 1 MG/ML AMP ONE (06:20)
[2024-05-24] MEDS ORDERED: BUPIVACAINE 0.25% PF 30 ML VIAL ONE (06:20)
[2024-05-24] MEDS ORDERED: GLYCOPYRROLATE 0.2 MG/ML VIAL ONE (06:28)
[2024-05-24] MEDS ORDERED: ONDANSETRON INJ 2 MG/ML 2 ML VIAL ONE (06:28)
[2024-05-24] MEDS ORDERED: LIDOCAINE 2% 2 ML VIAL/AMP(20MG/ML) INFIL ONE (06:28)
[2024-05-24] MEDS ORDERED: PROPOFOL IV EMULSION 10 MG/ML 100 ML VIAL IV ONE (06:28)
[2024-05-24] MEDS ORDERED: MIDAZOLAM HCL 1 MG/ML 2ML VIAL ONE ×2 (06:29→06:43)
[2024-05-24] MEDS ORDERED: KETAMINE HCL 10MG/ML SYR ONE (06:29)
[2024-05-24] MEDS ORDERED: ePHEDrine sulfate 50 MG/ML AMP IV PRN (06:53)
[2024-05-24] MEDS ORDERED: fentaNYL citrate PF 100 MCG/2 ML VIAL IV PRN (06:53)
[2024-05-24] MEDS ORDERED: ATROPINE SULFATE 0.1 MG/ML 10ML SYR IV PRN (06:53)
--- NOTE | 2024-05-24 06:54 | History & Physical Bridge Note ---
Date of Service May 24, 2024 History & Physical Bridge Note I have examined the patient, reviewed the History & Physical and in the interval since the performance of the History & Physical I have noted the following changes of clinical significance: no changes noted
[2024-05-24] MEDS: dexAMETHasone**PF** 10 MG/ML VIAL IV ONE (07:00)
[2024-05-24] MEDS: ceFAZolin 2000MG 2,000 MG/15 ML SYR IV SCH ×2 (07:15→15:10)
[2024-05-24] MEDS: ROPIV 0.5% 246mg, Ketorolac 30mg, EPINEPHrine 0.5mg in NSS INFIL SCH (07:51)
[2024-05-24] MEDS: ORTHO JOINT ANESTHETIC ONE (07:52)
[2024-05-24] MEDS: TRANEXAMIC ACID 1,000 MG **IV Intra-op IV SCH (08:06)
[2024-05-24] MEDS ORDERED: PROPOFOL IV EMULSION 10 MG/ML 20 ML VIAL IV ONE (08:38)
[2024-05-24] MEDS ORDERED: KETOROLAC 30 MG/ML VIAL ONE (08:44)
--- NOTE | 2024-05-24 09:26 | Operative Report ---
PG Post Operative Report Pre & Post Diagnosis Operation Date: 05/24/24 07:00 Pre-Op Diagnosis: Right Knee Degenerative Joint Disease Post-Op Diagnosis: Right Knee Degenerative Joint Disease I identified the patient and participated in the time-out.: Yes Procedure Operation Date: 05/24/24 07:00 Actual Procedures p Right Total Knee Arthroplasty(Right) - Sav Olvera MD Surgeon Sav Olvera MD Boiler House Inspector None Estimated Blood Loss 50 Findings Consistent with Post-Op Diagnosis Operative findings reveal advanced right knee DJD. She had extensive grade 4 [id number]-[id number] disease primarily the medial compartment. She had a moderate to large soft tissue envelope. Moderate-sized knee joint effusion. Specimens Right knee sent for pathology. Anesthesia Type Spinal Complications none Disposition Accompanied Patient To Recovery: No Indications Patient is a 53-year-old female who has a long history of right knee pain discomfort described to gotten worse over time. She has a history of a right knee arthroscopy many years ago. She is developed progressive increased pain over the past several years. She failed conservative treatment. She elected proceed with right total knee arthroplasty. Description of Procedure Operative implants consist of: 1. Biomet Vanguard size 67.5 right posterior stabilized femoral component. 2. Biomet size 67 tibial tray. 3. 12 mm posterior Byce polyethylene insert. 4. 28 x 8 all poly patella. The patient was taken to the op room, identified, placed on the operating table in the supine position. All conductors were appropriately padded. IV antibiotics fibra anesthesia team. Spinal anesthetic had been implemented in the holding area. She refused the adductor canal block. A Quijano catheter was placed in sterile fashion. A right thigh turn was then placed. The right lower extremity was then prepped and draped in usual sterile fashion. The right leg was elevated and exsanguinated with use of an Esmarch and a turn was placed at 300 mmHg. Anterior approach to the right knee was then performed to longitudinal incision centered over the patella. Sharp dissection was Through subcutaneous tissue down the extensor mechanism. A medial parapatellar arthrotomy incision was made. Some subperiosteal dissection was carried out medially. The fat pad was resected from Neath patella tendon. Lateral patello femoral ligament was released. Patella subluxated laterally and the knee was flexed. The osteophytes taken off distal femur. The ACL and PCL were then released from distal femur the tibia subluxated anteriorly. The external tibial alignment jig was then placed on the anterior face the tibia adjusted 14 mm medially. The proximal tibial cut was made remove about 2 to 3 mm of bone from the medial side. Tibia sized to a size 67. Attention drawn the femur. The distal femur was entered with a sharp drill. Intramedullary canal was suction. A right 5 degree valgus cutting guide was placed. Distal femoral cutting block was pinned in place. Distal femoral cut was made take an additional 3 mm of bone off distal femur. The femur was then sized to a size 67.5. The 8 cutting block was pinned parallel to the epicondylar axis which was 3 degrees of external rotation. The anterior cut, anterior chamfer, posterior cut, posterior chamfer cuts were made. The box cutting guide was placed and just slight lateral box cut was made. The knee was flexed. The remnants of the medial and lateral menisci were excised. The osteophytes taken off the posterior aspect the femur. A trial femoral component was placed. Tibial tray was pinned in Kylie external rotation and the drill and stem punch used to create defect in proximal tibia for the tibial tray. The knee was then trialed and the 12 mm insert fit most appropriately. Attention drawn the patella. For the patella was cleaned of all soft tissues. Patella thickness measured 22 mm in thickness was cut down to 14. Was sized to a size 28 patella. The lug holes were drilled for the 28 patella. The lateral osteophytes removed. Patella button was placed. Knee was taken through range of motion patella tracked nicely with no thumbs test. Attention was then drawn to place the permanent components. All trial components were removed. Bone plug was placed into this femur limit blood loss. Double batch Palacos G cement was mixed. A Biomet Vanguard size 67.5 right posterior stabilized femoral component, size 67 tibial tray, a 12 mm posterior stabilized polyethylene insert, and a 28 x 8 all poly patella then cemented in place. The knee was brought out into full extension till cement hardened. Final cement check was then performed. Pericapsular tissues were injected with total of 100 cc of Ortho mix. The patient did receive 1 g tranexamic acid. The tourniquet was then let down for final tourniquet time of 67 minutes. Hemostasis surgeries electrocautery. Wounds once again irrigated. The extensor Metros then closed with combination 1 PDS suture and then 1 Vicryl suture in a wgdamh-yd-utkeo fashion. Extensor Meclomen checked found to be intact. Subcutaneous tissues then closed with 2-0 Dexon suture in a buried interrupted fashion skin was closed skin iglesia. Leg was then cleaned and dried and a sterile dressing with Xeroform, 4 fours, sterile cast padding, Del bandage were applied. Patient then transferred to the recovery room in stable condition. Patient tolerated procedure well and there were no complications. I attest to the content of the Intraoperative Record and any orders documented therein. Any exceptions are noted below.
--- NOTE | 2024-05-24 09:59 | XRay Report ---
XR knee RT 1 or 2V routine HISTORY: 53 years-old Female Surgical Post Op right knee arthroplasty COMPARISON: 11/17/2023 TECHNIQUE: 2 views of the right knee FINDINGS: Total joint arthroplasty with patellar resurfacing. Anterior midline skin iglesia with expected posto perative soft tissue swelling and deep tissue air. No acute fracture or unexpected opaque foreign bod y. IMPRESSION: Total joint arthroplasty with expected postoperative changes. ACT 112: Negative or not required by law. The above report was generated using voice recognition software. It may contain grammatical, syntax o r spelling errors. Electronically signed by: Lev Singleton M.D. 05/24/2024 9:58 AM
--- NOTE | 2024-05-24 10:21 | Anesthesiology Progress Note ---
Date of Service May 24, 2024 Anesthesia Post Procedure Vital Signs Vital Signs: Temp Pulse Pulse Resp BP BP Pulse Ox 05/24/24 10:05 36.7 C 85 17 129/95 97 05/24/24 09:55 78 12 131/87 97 05/24/24 09:45 74 17 135/82 97 05/24/24 09:35 78 12 132/78 97 05/24/24 09:25 81 18 115/71 96 05/24/24 09:16 36.9 C 86 16 120/77 97 05/24/24 06:48 219/146 H 232/142 H 05/24/24 05:55 36.9 C 88 21 98 O2 Del Method 05/24/24 10:05 Room Air 05/24/24 09:55 Room Air 05/24/24 09:45 Room Air 05/24/24 09:35 Room Air 05/24/24 09:25 Room Air 05/24/24 09:16 Room Air 05/24/24 06:48 05/24/24 05:55 Room Air Transfer of Care Handoff Completed per policy Notes Mental Status: alert / awake / arousable Patient Amnestic to Procedure: Yes Nausea / Vomiting: adequately controlled Pain: adequately controlled Airway Patency, RR, SpO2: stable & adequate BP & HR: stable & adequate Hydration State: stable & adequate Neuraxial Anesthesia: was administered and sensory block is resolving Anesthetic Complications: no major complications apparent and Pt Satisfied with anesthetic care
[2024-05-24] MEDS ORDERED: MAGNESIUM HYDROXIDE SUSP 30 ML UDC PO PRN (10:53)
[2024-05-24] MEDS ORDERED: bisacodyL 10 MG SUPP PR PRN (10:53)
[2024-05-24] MEDS ORDERED: NALOXONE HCL 0.4 MG/1 ML VIAL/CARP IV PRN (10:53)
[2024-05-24] MEDS ORDERED: diphenhydrAMINE Capsule 25 MG CAP PO PRN (10:53)
[2024-05-24] MEDS ORDERED: [UNRECOGNIZED DRUG - REMARK] PO SCH (11:30)
[2024-05-24] MEDS: HYDROmorphone INJ 0.5 MG/0.5 ML SYR IV PRN (12:26)
[2024-05-24] MEDS: ONDANSETRON INJ 2 MG/ML 2 ML VIAL IV PRN ×2 (13:28→23:42)
[2024-05-24] MEDS: KETOROLAC 30 MG/ML VIAL IV SCH (14:00)
[2024-05-24] MEDS: oxyCODONE HCL IR 5 MG TAB (IMMEDIATE RELEASE) PO PRN (15:10)
[2024-05-24] MEDS: TRANEXAMIC ACID / 0.7% NACL 1,000 MG/100 ML BAG IV SCH (15:10)
[2024-05-24] MEDS: METOCLOPRAMIDE HCL INJ 5 MG/ML 2 ML VIAL IV PRN (15:30)
[2024-05-24] MEDS: ASCORBIC ACID 500 MG TAB PO SCH (16:54)
[2024-05-24] MEDS: DOCUSATE SODIUM 100 MG CAP PO SCH (20:21)
[2024-05-24] MEDS: ASPIRIN 81 MG ECTAB PO SCH (20:21)
[2024-05-24] MEDS: SENNA 8.6 MG TAB PO SCH ×2 (20:22→20:48)
[2024-05-25] MEDS: LEVOTHYROXINE SODIUM 175 MCG TABLET PO SCH (06:26)
--- NOTE | 2024-05-25 07:10 | Orthopedic Progress Note ---
Date of Service May 25, 2024 Assessment & Plan (1) Status post right knee replacement: Plan: 53-year-old female postop day 1 from right knee replacement doing reasonably well. Pretty ouch and painful this morning. Nothing out of the ordinary. She is neurologically intact. Plan: 1. DVT prophylaxis including thigh-high teds, SCDs, aspirin twice a day. 2. PT/OT. Weight-bear as tolerated. Right total knee protocol. 3. Pain control doing okay with current pain regimen. 4. Disposition. Plan is to discharge to home with some home health if she does okay in therapy today. Admission and Anticipated Discharge Date Admission Date: May 24, 2024 Subjective 53-year-old female postop day 1 from right knee replacement. She is doing okay. Pretty "ouch" this morning. No chest pain or shortness of breath. Not feeling currently dizzy or lightheaded. She did try and get up and walk yesterday got a little bit lightheaded. No chest pain. Physical Exam Physical Exam: Physical nation was a pleasant middle-age female. Lying in bed looks reasonably comfortable this morning. Examination of the right leg reveals the dressing be clean dry and intact. She can dorsiflex and plantarflex her foot appropriately. She is neurologically intact. Respiratory: normal respiratory effort, lungs clear to auscultation Cardiovascular: RRR, no murmur, no edema Gastrointestinal (Abdomen): normal bowel sounds, soft, nontender, no hepatosplenomegaly Results & Data Vital Signs (Past 12 Hours) Vital Signs Temp Pulse Resp BP BP Pulse Ox O2 Del Method 05/25/24 04:27 36.7 C 89 16 137/78 96 Room Air 05/24/24 23:45 36.8 C 91 H 18 155/94 H 96 Room Air 05/24/24 20:01 36.6 C 84 18 155/100 H 98 Room Air Laboratory Results Labs are pending.
[2024-05-25 07:20] LABS: Hematocrit (blood only) 36.3 % (37.0-47.0); Hemoglobin 12.1 g/dl (12.0-16.0); Mean Corpuscular Hemoglobin 30.1 pg (25.0-34.0); Mean Corpuscular Hgb Conc 33.3 g/dL (32.0-36.0); Mean Corpuscular Volume 90.3 fL (80.0-100.0); Mean Platelet Volume 10.2 fL (9.4-12.4); Platelet Count 221 K/uL (130-400); RDW Coefficient of Variation 12.7 % (11.5-14.5); RDW Standard Deviation 42.5 fL (36.4-46.3); Red Blood Count 4.02 M/uL (4.20-5.40); White Blood Count 12.27 K/ul (4.8-10.8)
[2024-05-25 07:43] LABS: BUN Creatinine Ratio 15.3 (10-20); Calcium 8.3 mg/dl (8.6-10.3); Potassium 3.8 mmol/L (3.5-5.1)
[2024-05-25] MEDS: dexAMETHasone 10 MG in SYRINGE 0 ML IV SCH (10:53)
[2024-05-25] MEDS: MULTIVITAMIN TAB PO SCH (10:58)
[2024-05-26] MEDS: ALUMINUM/MAGNESIUM SUSP 30 ML UDC PO PRN (07:18)
--- NOTE | 2024-05-26 08:18 | Orthopedic Progress Note ---
Date of Service May 26, 2024 Assessment & Plan (1) Status post right knee replacement: Overall she is doing as well as expected. She is still having a lot of pain in her right knee but she knows it is just cannot take some time.. She will be seen by physical therapy today for ambulation and range of motion exercises. She can be discharged home later today on oral pain medications. She will follow-up with orthopedics in 2 weeks. Sindhu Joshua was seen and examined at bedside this morning. Overall she is doing okay. She still having lot of pain in her right knee. She has been up and ambulating. Otherwise, she has no complaints.. Review of Systems All systems reviewed & are unremarkable except as noted in HPI & below. Physical Exam On physical exam of the right knee, the dressing is clean and dry. She is sitting in a chair at bedside with her knee flexed at 90 degrees.. Results & Data Results & Data Laboratory Results . Diagnostic Findings . PG Care Time/CCT Total # of Minutes Spent Total Time Spent with Patient: Total time spent is greater than 50% in coordination of care (as documented) at patient's floor/unit and/or counseling patient: Coding Level of Care Code 30968 Post Operative Follow-Up Diagnoses Status post right knee replacement Z96.651
--- NOTE | 2024-05-28 15:18 | Discharge Summary ---
Date of Service May 28, 2024 Admission HPI (Per Admitting) . The patient is a 53-year-old female who presents for surgical treatment of her right knee at this time. She got a long history of right knee problems dating back to a knee scope done by Dr. Parra 2017. Really never helped her too much. She has been through extensive conservative treatment over the years which has become less successful. The most recent injections helpful for less than a month. The pains become more disabling. Knee gives out on her. She cannot take NSAIDs due to some GI issues and she would like to have her knee fixed. Admission Exam (Per Admitting) . Physical examination reveals a pleasant middle-age female but looks in pretty good health. Examination of the right knee reveals patient walks independently. Slight limp on the right side. Got moderate to large soft tissue envelope. Well-healed arthroscopic portal sites. Small knee effusion. Range of motion 5-1 20. No instability. No particular pain with hip motion. Principal Diagnosis Same as "Discharge Diagnosis" noted below under Discharge Instructions. Discharge Exam On physical exam of the right knee, the dressing is clean and dry. She is sitting in a chair at bedside with her knee flexed at 90 degrees.. Discharge Data Procedures Performed Operation Date: 05/24/24 07:00 Actual Procedures p Right Total Knee Arthroplasty(Right) - Sav Olvera MD Ordered Studies 05/24/24 05:00 US - OR guided needle placemen Routine Hospital Course (1) Status post right knee replacement: This is a 53 year old patient admitted on 05/24/24 and underwent total knee arthroplasty. She tolerated the procedure well and there were no complications. Transferred to the PACU post op and later to the orthopedic floor for further care. She was given ancef for antibiotic prophylaxis. She was also given MIKE stockings, SCDs, and aspirin for DVT prophylaxis. Hemoglobin, hematocrit, and vital signs were monitored during her hospital stay and remained stable. Did not require any blood transfusions. There were no complications during her hospital stay. By post op day #2 the patient was tolerating a regular diet, pain was reasonably controlled with oral pain medicine, and she was participating in physical therapy. On post op day #2 the patient was discharged home and set up with home health care. She was given printed discharge instructions including prescriptions for extra strength tylenol, aspirin, cefadroxil, ketorolac, zofran, oxycodone, and senokot. Continue physical therapy, weight bearing as tolerated. Continue MIKE stockings. Follow up approximately 2 weeks post op or sooner if there are problems or concerns. Discharge Plan Discharge Items Patient Disposition: Home - Home Health Services Reason For Visit: Right Knee Osteoarthritis Discharge Diagnosis: Right Knee Replacement Activity: Per Instructions section Weightbearing: Full weightbearing Non-emergency contact: Surgeon Call non-emergency contact if: you have any medication questions Follow-up/Referrals: Sav Olvera MD [Physician] - 06/08/24 8:50 am Letha Roach MD [Primary Care Provider] - Diet: Regular Addtl Attending Provider Instructions: ACTIVITY RECOMMENDATIONS: Diet: * You may resume previous diet. Physical Therapy: * You will go to physical therapy three times each week for four to six weeks after your surgery in order to regain your knee range of motion and to retrain your knee to work properly. * It is just as important to make sure you are getting your knee perfectly straight as it is to regain your knee bend. * Taking a pain pill an hour before therapy can help you have a more productive and comfortable therapy session. Home Exercise: * You were shown a series of exercises (heel props, heel slides, etc.) in the hospital. Do these exercises three to four times each day including the exercises you were shown in physical therapy. Walking: * Get up and walk several times each day. For the first four weeks, try not to stand or walk for more than one hour at a time. If you do stand or walk for more than one hour, you will not hurt anything, but your knee and leg will likely swell. * As you feel comfortable, you may change from the walker or crutches to a cane and then to independent walking. MEDICATIONS: New Medicine: * You will likely be taking one or more of these medications: 1. Oxycodone - A quick and shorter-acting pain medication. Take one to two tablets every six hours to lessen your pain. 2. Aspirin - Thins your blood to lessen the chance of forming a blood clot. * The most common side effects of pain medicine and iron are nausea and constipation. If nausea or constipation is too much of a problem or if you have any questions about your new medicines or doses, call [facility] at . We will try to help you manage these issues. "VERY IMPORTANT TO READ AND REVIEW" Pain: * The immediate post-operative period after knee replacement surgery is often quite painful. * You are given a prescription for pain medicine. You should take it, as directed, when you need it, especially before physical therapy and before going to bed. Pain that interferes with sleep is very common and can last several months. * You will likely need pain medicine for the first four to six weeks. It will not stop all of the pain. The pain will lessen and as you feel better, you may change to milder pain medicine such as Tylenol. * The most common side effects of pain medicine are nausea and constipation, so don't take more than you need. SPECIAL CARE INSTRUCTIONS: TEDs/Elastic Stockings: * The white elastic stockings help limit swelling and prevent blood clots from forming in your legs. The more you wear them, the more they work. * Wear them for six weeks after knee replacement surgery and four weeks after partial knee replacement. Incision Site Care: * Remove dressing postoperative day 2 and then shower. Keep direct shower pressure off the incision site. * After showering, cover jean-paul with dry gauze and change daily or more frequently if the dressing is getting saturated with drainage. * Use the MIKE stockings to hold dressing in place. DO NOT apply tape on the skin. * May completely stop using bandage if wound is dry and no drainage * Jean-Paul are removed between 2 and 3 weeks post-op. If your follow-up appointment is made before 2 weeks, please have your appointment re- scheduled. It is too early to remove the jean-paul. Prevention of Infection: * Take antibiotics one hour before any dental cleaning, dental work, urological procedure, gastrointestinal procedure or any invasive surgery in order to prevent your new joint from getting infected. * You may get the antibiotics from the doctor performing the procedure or you may call our office at [phone] before and we will call in a prescription to the pharmacy of your choice. Things to Watch For: * Drainage from the incision site that occurs more than one week after your surgery. * Severely increased knee/leg pain or swelling. * Increased redness at the incision site. * Fever above 102 degrees Fahrenheit. * Unusual chest pain or shortness of breath. * Unusual pain or burning with urination. Call [facility] at [phone] with any of the above problems or if you have any questions about your medicines or recovery. FOLLOW UP VISIT: Make an appointment to see your doctor for approximately two weeks after surgery for a progress check and staple removal by calling the office at [phone]. Pending Studies at Discharge: No Stand-Alone Forms: My [facility], Smoking Cessation Medications and DC Order Prescriptions: Continued (DME) [facility] See Rx Instructions .MEDSUPPLY Qty: 1 0RF Rx Instructions: As directed oxycodone 5 mg tablet 5 - 10 mg PO Q6 PRN (Reason: pain) Qty: 40 0RF Rx Instructions: Take as needed for pain ondansetron 4 mg tablet,disintegrating 4 mg PO Q8 PRN (Reason: nausea) Qty: 20 1RF Rx Instructions: Take as needed for nausea ketorolac 10 mg tablet 10 mg PO Q6 5 Days Qty: 20 0RF Rx Instructions: Take 4 times per day with food for 5 days to lessen pain and swelling. sennosides [Senokot] 8.6 mg tablet 8.6 mg PO BID 14 Days Qty: 28 0RF Rx Instructions: Take two times a day to prevent/treat constipation acetaminophen [Tylenol Extra Strength] 500 mg tablet 1,000 mg PO TID 30 Days Qty: 180 0RF Rx Instructions: Take 3 times per day to lessen pain. aspirin [Hernandez Low Dose Aspirin] 81 mg tablet,delayed release (DR/EC) 81 mg PO BID 45 Days Qty: 90 0RF Rx Instructions: Take to prevent blood clots. cefadroxil 500 mg capsule 500 mg PO BID 7 Days Qty: 14 0RF Rx Instructions: Take 1 cap twice a day to prevent infection levothyroxine 175 mcg capsule 175 mcg PO QAM (DME) [facility] See Rx Instructions .MEDSUPPLY Qty: 1 0RF Rx Instructions: As directed [id number].157 400 mcg Tablet 1 tab PO QDL Admission Data Admit Date/Time: 05/24/24 09:20 Attending Provider: Sav Olvera Admit Provider: Sav Olvera Primary Care Provider: Letha Roach Other Providers: [facility],Home Health Other Interventions: Discharge Summary Assessment (RN) Last Done: 05/26/24 12:59
== END 2024-05-26 14:27 | disposition home health service (06) ==
LOC: ASU 05:15 → 3E 05:15